=== PATIENT | male | born 1945 | race African-American/Black ===

== ENCOUNTER 2018-07-29 13:20 | Emergency (ER) | payer MEDICARE, OTHER ==
[~2018-07-29] VITALS: Ht 175.3 cm; Wt 93.0 kg
[~2018-07-29 13:20] MED LIST: ALBUTEROL SULF8.5 GM INH; AZITHROMYCIN250 MG ORAL; BACTRIM DS TAB1 EAC1 ORAL; CIPRODEX OTIC7.5 M1 LEFT EAR; CYCLOBENZAPRINE10 MG ORAL; NORCO 5-325 TA1 EACH ORAL; NORVASC10 MG PO; VICODIN 5-5001 EACH PO; ZYLOPRIM100 MG PO
--- NOTE | 2018-07-29 13:30 | NUR ---
ED Nurse Note: Oli walked into ED c/o of "diabetic problems" patient also states that he is here for his high blood pressure. at time of arrival patients blood pressure was 240/115, Dr. Lechuga notified. patient denies any headaches,pain or any disruptions to vision, states that he is okay and just worried about diabetes. patient is alert and oriented x4, ambulatory with a steady gait, VSS
[2018-07-29 13:33] VITALS: BP 214/110
--- NOTE | 2018-07-29 13:46 | Emergency Room Report ---
History of Present Illness General Chief Complaint: General Complaint Source: Patient Present Illness HPI Patient is a 72-year-old male presented for increased bilateral lower extremity discomfort as well as increased thirst. Patient reports having prior history of hypertension but is been off of his medications since this morning. Patient had not been vomiting. He denies any severe headache or numbness or weakness. He reports previously taking metoprolol. He reports having increased urinary frequency. He denies any shortness of breath or chest discomfort. Allergies: Coded Allergies: No Known Allergies (Unverified , 07/29/18) Patient History Past Medical History: see triage record Reviewed Nursing Documentation: PMH: Agreed; PSxH: Agreed Nursing Documentation-PMH Past Medical History: No History, Except For Hx Hypertension: Yes Hx Asthma: No Review of Systems All Other Systems: negative except mentioned in HPI Physical Exam Vital Signs Date Time Temp Pulse Resp B/P (MAP) Pulse Ox O2 Delivery O2 Flow Rate FiO2 07/29/18 13:23 97.7 57 16 246/116 95 Sp02 EP Interpretation: reviewed, normal General Appearance: normal inspection, well appearing, no apparent distress, alert, GCS 15, non-toxic Head: atraumatic ENT: normal ENT inspection, hearing grossly normal, normal voice Neck: normal inspection, full range of motion, supple, no bony tend Respiratory: normal inspection, lungs clear, normal breath sounds, no respiratory distress, no retraction, no wheezing Cardiovascular #1: regular rate, rhythm, no edema Gastrointestinal: normal inspection, normal bowel sounds, non tender, soft, no guarding, no hernia Genitourinary: no CVA tenderness Musculoskeletal: normal inspection, back normal, normal range of motion Neurologic: normal inspection, alert, oriented x3, responsive, 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 Differential diagnosis include was not limited to renal insufficiency, myocardial infarction, radiculopathy, peripheral nerve disorder, hypertensive crisis among others. Patient was noted to have a blood sugar which is minimally elevated. Patient was given medications for uncontrolled blood pressure. Because of complexity of patient's case laboratory testing and imaging studies were ordered.Patient was noted to have slightly low white blood count. Patient was additionally noted to have a lower platelet count. Patient' s baseline creatinine was noted to be approximately 1.6. He was noted to have some increase in his creatinine compared to baseline. Patient is noted to have marked hypertension. Patient was given oral metoprolol as well as losartan. Patient was subsequent able to urinate and was noted to have improvement in his blood pressure.His creatinine was noted to be elevated compared to baseline. 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 Patient was advised of abnormal laboratory testing. Patient is awake alert and oriented. Patient was advised that we would need to improved control of his blood pressure. Patient was offered admission which she declined. Patient appears to be competent for AMA. Patient was advised risks of leaving hospital which included worsening of condition stroke and loss of current lifestyle. Patient was awake alert oriented at the time of AMA. He was advised he could return at any time. Labs Test 07/29/18 13:50 White Blood Count 3.3 K/UL (4.8-10.8) Red Blood Count 4.34 M/UL (4.70-6.10) Hemoglobin 13.5 G/DL (14.2-18.0) Hematocrit 40.2 % (42.0-52.0) Mean Corpuscular Volume 93 FL (80-99) Mean Corpuscular Hemoglobin 31.2 PG (27.0-31.0) Mean Corpuscular Hemoglobin Concent 33.7 G/DL (32.0-36.0) Red Cell Distribution Width 11.5 % (11.6-14.8) Platelet Count 127 K/UL (150-450) Mean Platelet Volume 7.0 FL (6.5-10.1) Neutrophils (%) (Auto) % (45.0-75.0) Lymphocytes (%) (Auto) % (20.0-45.0) Monocytes (%) (Auto) % (1.0-10.0) Eosinophils (%) (Auto) % (0.0-3.0) Basophils (%) (Auto) % (0.0-2.0) Differential Total Cells Counted 100 Neutrophils % (Manual) 64 % (45-75) Lymphocytes % (Manual) 28 % (20-45) Monocytes % (Manual) 7 % (1-10) Eosinophils % (Manual) 1 % (0-3) Basophils % (Manual) 0 % (0-2) Band Neutrophils 0 % (0-8) Platelet Estimate Decreased Platelet Morphology Normal Red Blood Cell Morphology Normal Activated Partial Thromboplast Time 31 SEC (23-33) Urine Color Yellow Urine Appearance Clear Urine pH 6 (4.5-8.0) Urine Specific [place] 1.010 (1.005-1.035) Urine Protein 2+ (NEGATIVE) Urine Glucose (UA) Negative (NEGATIVE) Urine Ketones Negative (NEGATIVE) Urine Blood Negative (NEGATIVE) Urine Nitrite Negative (NEGATIVE) Urine Bilirubin Negative (NEGATIVE) Urine Urobilinogen Normal MG/DL (0.0-1.0) Urine Leukocyte Esterase 1+ (NEGATIVE) Urine RBC 0 /HPF (0 - 0) Urine WBC 0-2 /HPF (0 - 0) Urine Squamous Epithelial Cells None /LPF (NONE/OCC) Urine Bacteria None /HPF (NONE) Sodium Level 141 MMOL/L (136-145) Potassium Level 4.5 MMOL/L (3.5-5.1) Chloride Level 105 MMOL/L (98-107) Carbon Dioxide Level 26 MMOL/L (21-32) Anion Gap 10 mmol/L (5-15) Blood Urea Nitrogen 32 mg/dL (7-18) Creatinine 2.5 MG/DL (0.55-1.30) Estimat Glomerular Filtration Rate mL/min (>60) Glucose Level 117 MG/DL (74-106) Hemoglobin A1c 4.9 % (4.3-6.0) Calcium Level 8.7 MG/DL (8.5-10.1) Total Bilirubin 0.7 MG/DL (0.2-1.0) Aspartate Amino Transf (AST/SGOT) 19 U/L (15-37) Alanine Aminotransferase (ALT/SGPT) 29 U/L (12-78) Alkaline Phosphatase 75 U/L (46-116) Troponin I 0.022 ng/mL (0.000-0.056) Total Protein 6.9 G/DL (6.4-8.2) Albumin 3.6 G/DL (3.4-5.0) Globulin 3.3 g/dL Albumin/Globulin Ratio 1.1 (1.0-2.7) Salicylates Level 0.4 ug/mL (2.8-20) Urine Opiates Screen Negative (NEGATIVE) Urine Barbiturates Screen Negative (NEGATIVE) Phencyclidine (PCP) Screen Negative (NEGATIVE) Urine Amphetamines Screen Negative (NEGATIVE) Urine Benzodiazepines Screen Negative (NEGATIVE) Urine Cocaine Screen Negative (NEGATIVE) Urine Marijuana (THC) Screen Negative (NEGATIVE) EKG Diagnostic Results Rate: bradycardiac - 52 Rhythm: NSR ST Segments: no acute changes Last Vital Signs Date Time Temp Pulse Resp B/P (MAP) Pulse Ox O2 Delivery O2 Flow Rate FiO2 07/29/18 13:33 97.7 56 16 214/110 95 Status: improved Disposition: AGAINST MEDICAL ADVICE Condition: Serious Brian Lechuga MD Jul 29, 2018 13:46
[2018-07-29] MEDS ORDERED: HYDROCHLOROTH12.5 M2 ORAL (13:54)
[2018-07-29] MEDS ORDERED: LOSARTAN POTAS100 MG ORAL (13:54)
[2018-07-29] MEDS ORDERED: NORMODYNE100 MG ORAL (13:54)
[2018-07-29] MEDS ORDERED: ALLOPURINOL100 M1 ORAL (13:54)
[2018-07-29] MEDS ORDERED: Metoprolol Succinate XL 50mg tab ORAL ONE (14:00)
[2018-07-29] MEDS ORDERED: Losartan 25mg tab ORAL ONE (14:00)
[2018-07-29 14:07] LABS: HEMATOCRIT 40.2 % (42.0-52.0); HEMOGLOBIN 13.5 G/DL (14.2-18.0); MEAN CORPUSCULAR VOLUME 93 FL (80-99); PLATELET COUNT 127 K/UL (150-450); RED BLOOD COUNT 4.34 M/UL (4.70-6.10); RED CELL DISTRIBUTION WIDTH 11.5 % (11.6-14.8); WHITE BLOOD COUNT 3.3 K/UL (4.8-10.8)
[2018-07-29 14:08] LABS: APPEARANCE,URINE CLEAR; BILIRUBIN, URINE NEGATIVE (NEGATIVE); GLUCOSE, URINE (UA) NEGATIVE (NEGATIVE); KETONES,URINE NEGATIVE (NEGATIVE); LEUKOCYTE ESTERASE ,URINE 1+ (NEGATIVE); NITRITE,URINE NEGATIVE (NEGATIVE); PH,URINE 6 (4.5-8.0); PROTEIN,URINE 2+ (NEGATIVE); UROBILINOGEN,URINE NORMAL MG/DL (0.0-1.0)
[2018-07-29 14:10] LABS: COLOR,URINE YELLOW
[2018-07-29 14:46] VITALS: BP 242/112
[2018-07-29 14:56] LABS: ANION GAP 10 mmol/L (5-15); BLOOD UREA NITROGEN 32 mg/dL (7-18); CALCIUM 8.7 MG/DL (8.5-10.1); CARBON DIOXIDE 26 MMOL/L (21-32); CHLORIDE 105 MMOL/L (98-107); CREATININE 2.5 MG/DL (0.55-1.30); POTASSIUM 4.5 MMOL/L (3.5-5.1); SODIUM 141 MMOL/L (136-145)
[2018-07-29 15:01] LABS: ALANINE AMINOTRANSFERASE 29 U/L (12-78); ALBUMIN 3.6 G/DL (3.4-5.0); ALBUMIN/GLOBULIN RATIO 1.1 (1.0-2.7); ALKALINE PHOSPHATASE 75 U/L (46-116); ASPARTATE AMINO TRANSFERASE 19 U/L (15-37); BILIRUBIN,TOTAL 0.7 MG/DL (0.2-1.0)
[2018-07-29 15:10] VITALS: BP 242/112
--- NOTE | 2018-07-29 15:10 | NUR ---
ED Nurse Note: Patient is leaving AMA, patient understands the risks of leaving such as , Dr. Lechuga has informed patient on the dangers of leaving AMA, patient's blood pressure was 246/120 to which patient and Dr. lechuga was aware. ID band and IV line removed
--- NOTE | 2018-07-30 18:04 | Cardiology Report ---
APPROVED REPORT EKG Measurement Heart [id number] Sinus bradycardia Nonspecific T wave abnormality Abnormal ECG
== END 2018-07-29 15:10 | disposition left against medical advice (07) ==
LOC: EMR 14:34
DX: I10 Essential (primary) hypertension (principal); N28.9 Disorder of kidney and ureter, unspecified; D69.6 Thrombocytopenia, unspecified; D72.819 Decreased white blood cell count, unspecified
CPT/HCPCS: 36415; 80053; 80307; 81001; 83036; 84484; 85007; 85025; 85730; 93005; 99283; G0480; 80329

== ENCOUNTER 2018-12-01 22:39 | Emergency (ER) | payer MEDICARE, OTHER ==
[~2018-12-01] VITALS: Ht 175.3 cm; Wt 90.7 kg
[~2018-12-01 22:39] MED LIST changes: +ALLOPURINOL100 M1 ORAL; +HYDROCHLOROTH12.5 M2 ORAL; +LOSARTAN POTAS100 MG ORAL; +NORMODYNE100 MG ORAL
--- NOTE | 2018-12-01 22:59 | NUR ---
ED Nurse Note: Received report. Pt from home, ambulatory, AAOx4, c/o uncontrolled coughing with pain 3/10 and congestion with phlegm for about ten days. Will assess and carry out ER MD's orders.
[2018-12-01 23:06] VITALS: BP 253/121
[2018-12-01] MEDS ORDERED: PROMETHAZINE-C118 M1 ORAL (23:22)
--- NOTE | 2018-12-01 23:23 | Emergency Room Report ---
History of Present Illness General Chief Complaint: Upper Respiratory Illness Source: Patient Present Illness [facility] This is a 72-year-old male with a history of high blood pressure. He presents with chief to have a cough and congestion and sore throat. Onset today. He tried Mucinex and is not helping. He said he just wants some medicine for his cough because he has a flight to catch at 2 AM. He denies any fever chills but no nausea no vomiting. Did not take his blood pressure medication today. He is on labetalol and losartan. No other complaint. No headache. No chest pain. No abdominal pain or urinary complaint. Allergies: Coded Allergies: No Known Allergies (Unverified , 07/29/18) Patient History Past Medical History: see triage record, old chart reviewed, HTN Past Surgical History: none Pertinent Family History: none Social History: Denies: smoking Immunizations: other Reviewed Nursing Documentation: PMH: Agreed; PSxH: Agreed Nursing Documentation-PMH Past Medical History: No History, Except For Hx Hypertension: Yes Hx Asthma: No Review of Systems Eye: Denies: eye pain, blurred vision ENT: Denies: ear pain, nose congestion, throat swelling Respiratory: Reports: cough; Denies: shortness of breath Cardiovascular: Denies: chest pain, palpitations Gastrointestinal: Denies: abdominal pain, diarrhea, nausea, vomiting Musculoskeletal: Denies: back pain, joint pain Skin: Denies: rash Neurological: Denies: headache, numbness Endocrine: Denies: increased thirst, increased urine Hematologic/Lymphatic: Denies: easy bruising All Other Systems: negative except mentioned in HPI Physical Exam Vital Signs Date Time Temp Pulse Resp B/P (MAP) Pulse Ox O2 Delivery O2 Flow Rate FiO2 12/01/18 22:53 98.4 62 14 255/124 (167) 95 Room Air Vitals with high blood pressure Sp02 EP Interpretation: reviewed, normal General Appearance: well appearing, no apparent distress, alert Head: normocephalic, atraumatic Eyes: bilateral eye PERRL, bilateral eye EOMI ENT: hearing grossly normal, normal pharynx Neck: full range of motion, supple, no meningismus Respiratory: chest non-tender, lungs clear, normal breath sounds Cardiovascular #1: regular rate, rhythm, no murmur Gastrointestinal: normal bowel sounds, non tender, no mass, no organomegaly, no bruit, non-distended Musculoskeletal: back normal, gait/station normal, normal range of motion Psychiatric: mood/affect normal Skin: warm/dry Medical Decision Making Diagnostic Impression: Primary Impression: Upper respiratory infection Qualified Codes: J06.9 - Acute upper respiratory infection, unspecified Additional Impression: Accelerated hypertension ER Course Presents with a cough, probably from upper respiratory infection. He denies any drug use or [id number] cough and cold medicine other than Mucinex. His blood pressure is very high here. I wanted to do work-up but patient refused. He said he cannot stay because he has to light and of couple hours. He denies any symptoms from this. Has not taken his blood pressure medication. We will give him a dose of medicine here. Patient is competent to refuse work -up here. Last Vital Signs Date Time Temp Pulse Resp B/P (MAP) Pulse Ox O2 Delivery O2 Flow Rate FiO2 12/01/18 23:06 98.4 15 253/121 96 Room Air 12/01/18 23:03 62 Status: improved Disposition: HOME, SELF-CARE Condition: Stable Scripts Codeine/Promethazine Hcl* (PROMETHAZINE-CODEINE SYRUP*) 118 Ml Syrup 5 ML ORAL Q6H PRN for For Cough, #120 ML 0 Refills Prov: Juan David Olmstead MD 12/01/18 Patient Instructions: Upper Respiratory Infection, Adult Additional Instructions: Take Your blood pressure medication. Your blood pressure is very high. You can get a stroke, heart attack, renal failure from this. You refused any work- up here. Follow-up with your doctor TEOFILO for further work-up. Return if symptoms worsen. Juan David Olmstead MD Dec 01, 2018 23:23
--- NOTE | 2018-12-01 23:25 | NUR ---
ED Nurse Note: Attempted to recheck patient's blood pressure but refused, states that "i know that my blood pressure is high, i dont want it to be checked, i just want to be treated for my cough". Dr. Olmstead notified and aware
[2018-12-01 23:30] VITALS: BP 255/124
[2018-12-01] MEDS ORDERED: cloNIDine 0.2mg Tab ORAL ONE (23:30)
--- NOTE | 2018-12-01 23:31 | NUR ---
ER DISCHARGE NOTE: Patient is cleared to be discharged per ERMD, pt is aox4, on room air, with stable vital signs. pt was given dc and prescription instructions, pt was able to verbalize understanding, pt id band and removed without complications. pt is able to ambulate with steady gait. pt took all belongings. Patient understands the risks of leaving with a high blood pressure, states that he is okay to go home.
== END 2018-12-01 23:30 | disposition home or self-care (01) ==
LOC: EMR 23:27
DX: J06.9 Acute upper respiratory infection, unspecified (principal); I10 Essential (primary) hypertension
CPT/HCPCS: 99282

== ENCOUNTER 2019-11-21 00:42 | Emergency (ER) | payer MEDICARE, OTHER ==
[~2019-11-21] VITALS: Ht 175.3 cm; Wt 86.2 kg
[~2019-11-21 00:42] MED LIST changes: +PROMETHAZINE-C118 M1 ORAL
[2019-11-21] MEDS ORDERED: COMBIGAN EYE DRO5 ML OP (00:51)
[2019-11-21] MEDS ORDERED: ALLOPURINOL100 M1 ORAL (00:51)
[2019-11-21] MEDS ORDERED: cloNIDine 0.2mg Tab ORAL ONE (01:15)
[2019-11-21 01:17] VITALS: BP 280/150
[2019-11-21 01:23] LABS: BASOPHILS % (AUTO) 1.5 % (0.0-2.0); HEMATOCRIT 40.8 % (42.0-52.0); HEMOGLOBIN 14.5 G/DL (14.2-18.0); LYMPHOCYTES % (AUTO) 21.2 % (20.0-45.0); MEAN CORPUSCULAR VOLUME 88 FL (80-99); MONOCYTES % (AUTO) 13.2 % (1.0-10.0); PLATELET COUNT 131 K/UL (150-450); RED BLOOD COUNT 4.64 M/UL (4.70-6.10); RED CELL DISTRIBUTION WIDTH 11.4 % (11.6-14.8)
[2019-11-21 01:28] VITALS: BP 252/108
[2019-11-21 01:30] LABS: ANION GAP 12 mmol/L (5-15); BLOOD UREA NITROGEN 57 mg/dL (7-18); CALCIUM 8.6 MG/DL (8.5-10.1); CARBON DIOXIDE 24 MMOL/L (21-32); CHLORIDE 104 MMOL/L (98-107); CREATININE 3.8 MG/DL (0.55-1.30); POTASSIUM 3.7 MMOL/L (3.5-5.1); SODIUM 140 MMOL/L (136-145)
[2019-11-21 01:41] LABS: ALANINE AMINOTRANSFERASE < 6 U/L (12-78); ALBUMIN 3.8 G/DL (3.4-5.0); ALBUMIN/GLOBULIN RATIO 1.1 (1.0-2.7); ALKALINE PHOSPHATASE 71 U/L (46-116); ASPARTATE AMINO TRANSFERASE 21 U/L (15-37); BILIRUBIN,TOTAL 0.4 MG/DL (0.2-1.0)
--- NOTE | 2019-11-21 01:41 | Emergency Room Report ---
History of Present Illness General Chief Complaint: General Complaint Source: Patient Present Illness HPI 73-year-old male presents to ED. States that for the last 2 weeks he has been having inguinal more frequent bowel movements which have been softer than usual. Feels rumbling in his stomach. Denies pain. Denies nausea or vomiting. Denies any sick contacts or recent travel. BP in triage also high. Systolic over 250. Notes history of hypertension. States he did not take his evening blood pressure meds yet. States that this is usual for him. Denies any chest pain no shortness of breath. Denies any headache nausea or vomiting. No other aggravating relieving factors. 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 COVID-19 Screening: Negative COVID-19 COVID-19 Testing Source: [facility] Patient History Past Medical History: DM, HTN Past Surgical History: none Pertinent Family History: none Social History: Denies: smoking, alcohol use, drug use Immunizations: UTD Reviewed Nursing Documentation: PMH: Agreed; PSxH: Agreed Nursing Documentation-PMH Past Medical History: No History, Except For Hx Hypertension: Yes Hx Asthma: No Review of Systems All Other Systems: negative except mentioned in HPI Physical Exam Vital Signs Date Time Temp Pulse Resp B/P (MAP) Pulse Ox O2 Delivery O2 Flow Rate FiO2 11/21/19 00:44 98.4 57 18 250/130 (170) 96 Room Air 11/21/19 01:17 99 Sp02 EP Interpretation: reviewed, normal General Appearance: no apparent distress, alert, GCS 15, non-toxic Head: normocephalic, atraumatic Eyes: bilateral eye normal inspection, bilateral eye PERRL ENT: hearing grossly normal, normal pharynx, no angioedema, normal voice Neck: full range of motion, supple/symm/no masses Respiratory: chest non-tender, lungs clear, normal breath sounds, speaking full sentences Cardiovascular #1: regular rate, rhythm, no edema Cardiovascular #2: 2+ carotid (R), 2+ carotid (L), 2+ radial (R), 2+ radial (L) , 2+ dorsalis pedis (R), 2+ dorsalis pedis (L) Gastrointestinal: normal bowel sounds, non tender, soft, non-distended, no guarding, no rebound Rectal: deferred Genitourinary: normal inspection, no CVA tenderness Musculoskeletal: back normal, normal range of motion, gait/station normal, non- tender Neurologic: alert, motor strength/tone normal, oriented x3, sensory intact, responsive, speech normal Psychiatric: judgement/insight normal, memory normal, mood/affect normal, no suicidal/homicidal ideation Reflexes: 3+ bicep (R), 3+ bicep (L), 3+ tricep (R), 3+ tricep (L), 3+ knee (R) , 3+ knee (L) Lymphatic: no adenopathy Medical Decision Making Diagnostic Impression: Primary Impression: Hypertensive urgency Additional Impression: Renal insufficiency ER Course Hospital Course 73-year-old male presents with frequent soft stools. Also noting blood pressure high Differential diagnoses include: hypertensive urgency, gastroenteritis arrythmia , IA/ACS Clinical course Patient placed on stretcher. After initial history and physical I ordered labs , EKG, chest x-ray. labs reviewed- BUN/Cr elevated, troponins 0.058, no leukocytosis, hemoglobin/ hematocrit stable EKG - NSR no acute ischemic changes interpreted by me Chest x-ray-no cardiomegaly, no rib fracture, no pneumothorax, no acute process Initial systolic BP 280. Patient states that this is normal for him. On previous visits patient has been here systolic blood pressure has been greater than 250 Patient given hydralazine and clonidine with some improvement. I discussed lab results with the patient. There is increase in his creatinine as well as minimally elevated troponin. I believe patient should be admitted but patient states that he would like to leave. Patient states he wishes to go home. Understands the risks of leaving. Patient has competency to make his own decisions. Signed AMA form. Patient will be given prescription for Cipro. Given copy of his labs. States he will follow-up with his PMD I. I feel this is a highly complex case requiring extensive working including EKG/Rhythm strip, Xray/CT/US, Blood/urine lab work, repeat exams while in ED, and administration of strong opiates/narcotics for pain control, admission to hospital or close patient follow up. Diagnosis - hypertensive urgency, renal insufficiency patient left AMA Labs Test 11/21/19 01:00 White Blood Count 4.0 K/UL (4.8-10.8) Red Blood Count 4.64 M/UL (4.70-6.10) Hemoglobin 14.5 G/DL (14.2-18.0) Hematocrit 40.8 % (42.0-52.0) Mean Corpuscular Volume 88 FL (80-99) Mean Corpuscular Hemoglobin 31.2 PG (27.0-31.0) Mean Corpuscular Hemoglobin Concent 35.5 G/DL (32.0-36.0) Red Cell Distribution Width 11.4 % (11.6-14.8) Platelet Count 131 K/UL (150-450) Mean Platelet Volume 6.2 FL (6.5-10.1) Neutrophils (%) (Auto) 61.0 % (45.0-75.0) Lymphocytes (%) (Auto) 21.2 % (20.0-45.0) Monocytes (%) (Auto) 13.2 % (1.0-10.0) Eosinophils (%) (Auto) 3.0 % (0.0-3.0) Basophils (%) (Auto) 1.5 % (0.0-2.0) Sodium Level 140 MMOL/L (136-145) Potassium Level 3.7 MMOL/L (3.5-5.1) Chloride Level 104 MMOL/L (98-107) Carbon Dioxide Level 24 MMOL/L (21-32) Anion Gap 12 mmol/L (5-15) Blood Urea Nitrogen 57 mg/dL (7-18) Creatinine 3.8 MG/DL (0.55-1.30) Estimat Glomerular Filtration Rate 18.9 mL/min (>60) Glucose Level 103 MG/DL (74-106) Calcium Level 8.6 MG/DL (8.5-10.1) Total Bilirubin 0.4 MG/DL (0.2-1.0) Aspartate Amino Transf (AST/SGOT) 21 U/L (15-37) Alanine Aminotransferase (ALT/SGPT) < 6 U/L (12-78) Alkaline Phosphatase 71 U/L (46-116) Troponin I 0.058 ng/mL (0.000-0.056) Pro-B-Type Natriuretic Peptide 1774 pg/mL (0-125) Total Protein 7.3 G/DL (6.4-8.2) Albumin 3.8 G/DL (3.4-5.0) Globulin 3.5 g/dL Albumin/Globulin Ratio 1.1 (1.0-2.7) EKG Diagnostic Results Rate: normal Rhythm: NSR ST Segments: no acute changes ASA given to the pt in ED: No Rhythm Strip Diag. Results EP Interpretation: yes Rhythm: NSR, no PVC's, no ectopy Chest X-Ray Diagnostic Results Chest X-Ray Diagnostic Results : Chest X-Ray Ordered: Yes # of Views/Limited/Complete: 1 View Indication: Other EP Interpretation: Yes Interpretation: no consolidation, no effusion, no pneumothorax Impression: No acute disease Electronically Signed by: Electronically signed by Gualberto Steven MD Last Vital Signs Date Time Temp Pulse Resp B/P (MAP) Pulse Ox O2 Delivery O2 Flow Rate FiO2 11/21/19 01:28 98.4 59 18 252/108 99 Room Air 99 Status: improved Disposition: AGAINST MEDICAL ADVICE Condition: Stable Scripts Dicyclomine Hcl* (DICYCLOMINE HCL*) 10 Mg Capsule 10 MG ORAL QID, #20 CAP Prov: Gualberto Steven MD 11/21/19 Ciprofloxacin Hcl* (CIPROFLOXACIN HCL*) 500 Mg Tablet 500 MG ORAL Q12H, #14 TAB 0 Refills Prov: Gualberto Steven MD 11/21/19 Referrals: NON PHYSICIAN (PCP) Gualberto Steven MD November 21, 2019 01:41
[2019-11-21 02:00] VITALS: BP 252/108
[2019-11-21] MEDS ORDERED: CIPROFLOXACIN500 M2 ORAL (02:02)
[2019-11-21] MEDS ORDERED: DICYCLOMINE HCL10 MG ORAL (02:02)
--- NOTE | 2019-11-21 02:54 | Diagnostic Imaging Report ---
EXAM: XR Chest, 1 View CLINICAL HISTORY: CP TECHNIQUE: Frontal view of the chest. COMPARISON: 07/14/14 FINDINGS: Lungs: Possible left lateral base 2 cm cystic lung lesion not well evaluated on this study. Otherwise no acute cardio pulmonary disease. Pleural space: Unremarkable. No pneumothorax. Heart: Mild cardiomegaly, likely at least partially due to portable technique. Mediastinum: Unremarkable. Bones/joints: Unremarkable. IMPRESSION: 1. Mild cardiomegaly, likely at least partially due to portable technique. 2. Possible left lateral base 2 cm cystic lung lesion not well evaluated on this study. 3. Recommend outpatient unenhanced CT chest to further characterize. 4. Otherwise no acute cardio pulmonary disease.
== END 2019-11-21 02:00 | disposition left against medical advice (07) ==
LOC: EMR 01:05
DX: I16.0 Hypertensive urgency (principal); N28.9 Disorder of kidney and ureter, unspecified; E11.9 Type 2 diabetes mellitus without complications; I10 Essential (primary) hypertension
CPT/HCPCS: 36415; 71045; 80053; 82962; 83880; 84484; 85025; 93005; 96374; 99284; J0360; J7040

== ENCOUNTER 2020-08-16 18:39 | Emergency (ER) | payer MEDICARE, OTHER ==
[~2020-08-16 18:39] MED LIST changes: +CIPROFLOXACIN500 M2 ORAL; +COMBIGAN EYE DRO5 ML OP; +DICYCLOMINE HCL10 MG ORAL
--- NOTE | 2020-08-16 18:46 | NUR ---
pt left without being seen
--- NOTE | 2020-08-16 21:53 | Emergency Room Report ---
History of Present Illness General Chief Complaint: To Be Triaged Present Illness HPI Patient left the emergency department prior to triage. Allergies: Coded Allergies: No Known Allergies (Unverified , 07/29/18) COVID-19 Screening Contact w/high risk pt: No Recent Travel to affected area: No Experienced COVID-19 symptoms?: No Nursing Documentation-[facility] Hx Hypertension: Yes Hx Asthma: No Medical Decision Making Disposition: LEFT W/OUT BEING SEEN Referrals: NON PHYSICIAN (PCP) Nehal Suárez M.D. Aug 16, 2020 21:53
== END 2020-08-16 18:47 | disposition left against medical advice (07) ==
LOC: EMR 18:45
DX: Z53.21 Procedure and treatment not carried out due to patient leaving prior to being seen by health care provider (principal)